=== PATIENT | female | born 2000 ===

== ENCOUNTER 2025-05-10 13:21 | Outpatient (AMB) | payer OTHER, SELFPAY ==
--- NOTE | 2025-05-10 13:29 | MHC.PC.OV ---
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 Transferring care from [facility] ([facility] the mall). Medical records have been requested and have not received. 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 Presenting for a new patient visit and to discuss ringing in her ears. She was last seen by a provider two years ago. She reports experiencing ringing in her ears for about a year, which comes and goes. The ringing is mainly in the right ear, occurs once or twice a week, and lasts for a few seconds. She notes it can happen in noisy environments like work or even in silence. The sound is a high-pitched ring and does not pulse. She also experiences ear pain and popping, particularly with elevation changes while driving. She reports depressive symptoms including lack of motivation, energy, and interest in activities, but has declined therapy or medication. 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 1. Little interest or pleasure in doing things: several days 2. Feeling down, depressed, or hopeless: several days 3. Trouble falling or staying asleep, or sleeping too much: more than half the days 4. Feeling tired or having little energy: several days 5. Poor appetite or overeating: not at all 6. Feeling bad about yourself - or that you are a failure or have let yourself or your family down: not at all 7. Trouble concentrating on things, such as reading the newspaper or watching television: not at all 8. Moving or speaking so slowly that other people could have noticed. Or the opposite - being so fidgety or restless that you have been moving around a lot more than usual: not at all 9. Thoughts that you would be better off or of hurting yourself in some way: not at all Total score: 5 Depression Screening Interpretation: Positive Depression Screening Follow-up: Existing condition and Declines treatment Depression Screening Done: Yes 56393 - PHQ-9 Billing: Yes Source: Developed by Drs. Roque Melendez, Tonya Maza, Shaheed Azevedo and colleagues, with an educational oneyda from [employer]. Thrive Questionnaire Date Thrive assessed: 05/10/25 I am a: Patient What is your living situation today?: I have a steady place to live Within the past 12 months, did the food you bought not last and you didn't have the money to get more?: I choose not to answer this question Within the past 12 months, did you worry whether your food would run out before you got money to buy more?: I choose not to answer this question Do you have trouble paying for medicines?: No Do you have trouble getting transportation to medical appointments?: No Do you have trouble paying your heating and electricity bill?: No Do you have trouble taking care of your child, family member or friend?: No Do you have trouble with day-to-day activities such as bathing, preparing meals, shopping, managing finances, etc.?: No Are you currently unemployed and looking for a job?: No Are you interested in more education?: No Please select the resources that you would like help with: None Currently or been in a relationship where the following occur: No concerns reported THRIVE Score: 0 AUDIT C Alcohol Use Questionnaire (AUDIT-C) 1. How often do you have a drink containing alcohol?: Monthly or less 2. How many drinks containing alcohol do you have on a typical day when you are drinking?: 1 or 2 3. How often do you have six or more drinks on one occasion?: Never Total Score: 1 NADER-7 AMB Questionnaire NADER-7 Date NADER - 7 assessed: 05/10/25 Feeling nervous, anxious, or on edge: 0 = Not at all Not being able to stop or control worryin = Not at all Worrying too much about different things: 0 = Not at all Trouble relaxin = Not at all Being so restless that it is hard to sit still: 0 = Not at all Becoming easily annoyed or irritable: 0 = Not at all Feeling afraid as if something awful might happen: 0 = Not at all Total NADER-7 score (0-4 normal; 5-9 mild; 10-14 moderate; 15-21 severe): 0 Source: Developed by Drs. Roque Melendez, Tonya Maza, Shaheed Azevedo and colleagues, with an educational onyeda from [employer]. Review of Systems Const Denies body aches, Denies chills, Denies fever(s), Denies headache(s) and Denies poor appetite Eyes Reports no additional complaints ENT Denies dizziness and Denies headache(s) Card Denies chest pain, Denies syncope, Denies edema, Denies irregular heart rhythm, Denies lightheadedness and Denies dyspnea Resp Denies cough and Denies dyspnea GI Denies abdominal pain, Denies constipation, Denies diarrhea, Denies nausea and Denies vomiting Reports no additional complaints Musc Reports no additional complaints and Denies abnormal gait Skin/Breast Reports system reviewed and no additional complaints, except as documented Neuro Denies abnormal gait, Denies dizziness, Denies syncope and Denies headache(s) Psych Reports no additional complaints Physical exam (Primary Care) Vital Signs: Last Vital Signs Temp 97.5 F 05/10/25 13:32 Pulse 91 05/10/25 13:32 BP 120/80 05/10/25 13:32 Pulse Ox 98 05/10/25 13:32 Oxygen Delivery Method Room Air 05/10/25 13:32 BMI result Body Mass Index 40.3 Tobacco/Smoking Status: Tobacco use Status Tobacco use date assessed 05/10/25 05/10/25 13:34 Patient Tobacco Use Status Never used Tobacco 05/10/25 13:34 e-Cigarette/Vaping Use Never Used 05/10/25 13:34 PHQ-9: PHQ-9 Score PHQ-9: Total score 5 05/10/25 13:48 Depression Screening Interpretation: Positive Depression Screening Follow-up: Existing condition and Declines treatment Thrive Assessment: Date of Thrive Assessment Date Thrive assessed 05/10/25 05/10/25 13:34 Currently or been in a relationship where the following occur: No concerns reported Const General: cooperative, healthy appearing, comfortable and no acute distress Orientation/consciousness: patient oriented x3 HENMT Head: Yes normocephalic Ears: hearing grossly normal bilaterally General nose exam: Normal external nose present Face and sinus: Yes normal facial exam and Yes sinuses nontender Mouth: Normal oral and palatal mucosa present and tongue normal Throat: Yes posterior oropharynx normal Eyes General: appearance normal, both eyes and all related structures Conjunctivae: conjunctivae normal Pupils: Equal, round and reactive pupils present EOM: EOMs intact bilaterally and No Nystagmus present Neck Neck: Yes full ROM and Yes no lymphadenopathy Chest Chest palpation & inspection: normal inspection of the chest Resp Effort & Inspection: normal respiratory effort Auscultation: clear to auscultation bilaterally, no crackles, no rales, no rhonchi and no wheezes Cardio Rate: regular rate Rhythm: regular rhythm Peripheral pulses: radial pulses present and dorsalis pedis present GI Inspection: Yes normal to inspection and No Abdominal wall edema Palpation (GI): Soft to palpation, not firm and nontender Auscultation: normal bowel sounds Rectal Exam - Female: deferred General: Yes no CVA tenderness Back/Spine/Pelvis Back: no CVA tenderness Skin General skin exam: no rashes or lesions noted Neuro General: patient oriented x3 Cranial nerves: Yes Equal, round and reactive pupils present, Yes Midline tongue present, Yes Ability to bilaterally elevate shoulders present and No Nystagmus present Gait exam (Neuro): Normal gait present Extrem General: Yes normal to inspection, Yes full ROM and No edema Psych Speech and movement: Normal speech and movement present Affect: normal affect Attitude: cooperative Insight: Good insight present (Psych) Judgement: Good judgement present (Psych) Coding Level of Care Code New Pt Prev Care 18-39yr([id number] Diagnoses Annual physical exam Z00.00 Morbid obesity E66.01 ETD (eustachian tube dysfunction) H69.90 Tinnitus H93.19 Depression F32.A Additional Codes PHQ-9 - 16047 - PHQ-9 Billing: Yes ([id number]) Assessment & Plan Assessment & Plan (1) Annual physical exam: Code(s): Z00.00 - Encounter for general adult medical examination without abnormal findings Category: Medical Plan: Patient is up-to-date on all recommended routine screenings and vaccinations for her age. She declines the Pap smear she has not been sexually active. I did order for updated blood work as she is due for blood work at this time. She will follow up yearly or sooner as needed or pending blood work evaluation. (2) Morbid obesity: Code(s): E66.01 - Morbid (severe) obesity due to excess calories Category: Medical Plan: Healthy diet and regular exercise is encouraged. (3) ETD (eustachian tube dysfunction): Code(s): H69.90 - Unspecified Eustachian tube disorder, unspecified ear Category: Medical Plan: The patient's symptoms of intermittent tinnitus, ear popping, and pressure with elevation changes are consistent with eustachian tube dysfunction. Examination revealed fluid behind one eardrum, supporting this diagnosis. It was explained that this condition has no cure but can be managed by treating underlying allergies. A trial of Flonase nasal spray and Zyrtec oral antihistamine was prescribed. She was advised that it may take 4-6 weeks for Flonase to become fully effective. If symptoms do not improve after about a month, she should follow up for further evaluation, which may include a hearing test. (4) Tinnitus: Code(s): H93.19 - Tinnitus, unspecified ear Category: Medical Plan: see above. She will reach out if symptoms worsen or do not improve with the Flonase (5) Depression: Code(s): F32.A - Depression, unspecified Category: Medical Plan: The patient's depression screening was positive, and she endorsed symptoms of low motivation, energy, and interest. She declined both counseling and medication for these symptoms at this time. She was advised to reach out if she changes her mind about treatment in the future. Plan This note was constructed using voice recognition software. While every effort has been made to ensure accuracy and wire wrapping machine operator, still areas may have been included sometimes these areas may affect the content or meeting of the given symptoms. Total time spent caring for the patient today was 30 minutes. This includes time spent before the visit reviewing the chart, time spent during the visit, and time spent after the visit and documentation. Patient was informed and verbally consented to the use of an ambient scribe for clinic note documentation during this visit. Orders: Orders Vitamin D 25-OH Total Today Z13.21 - Encounter for screening for nutritional disorder Complete Blood Count Auto Diff Today Z13.0 - Encounter for screening for diseases of the blood and blood-forming organs and certain disorders involving the immune mechanism Comprehensive Met. Panel Today Z13.1 - Encounter for screening for diabetes mellitus UA CC w/rflx Micro + Cult Today R35.89 - Other polyuria TSH reflex Free T4 Today Z13.29 - Encounter for screening for other suspected endocrine disorder Vitamin B12 and Folate Today Z13.21 - Encounter for screening for nutritional disorder Medications: New fluticasone propionate 50 mcg/actuation (Flonase Allergy Relief) administer into each nostril 1 spray intranasal DAILY 16 grams 0RF cetirizine (All Day Allergy (cetirizine)) 10 mg PO DAILY 90 tabs 0RF
[2025-05-10 13:32] VITALS: BP 120/80; PULSE 91; TEMP 36.4; O2SAT 98; BMI 40.3
== END 2025-05-10 14:04 | disposition home or self-care (01) ==
DX: Z00.00 Encounter for general adult medical examination without abnormal findings (principal); E66.01 Morbid (severe) obesity due to excess calories; Z68.41 Body mass index [BMI] 40.0-44.9, adult; H69.91 Unspecified Eustachian tube disorder, right ear; H93.11 Tinnitus, right ear; F32.A Depression, unspecified

== ENCOUNTER → 2025-05-10 13:21 | Outpatient (BNVA) | payer OTHER, SELFPAY | DX: Z00.00 Encounter for general adult medical examination without abnormal findings (principal); H69.90 Unspecified Eustachian tube disorder, unspecified ear; H93.13 Tinnitus, bilateral; E66.01 Morbid (severe) obesity due to excess calories; F32.A Depression, unspecified; Z68.41 Body mass index [BMI] 40.0-44.9, adult | CPT/HCPCS: 96127 ==